=== PATIENT | female | born 1975 | race Caucasian/White ===

== ENCOUNTER 2017-12-20 19:04 | Emergency (ER) | payer MEDICAID ==
[~2017-12-20] VITALS: Ht 160 cm; Wt 100.8 kg
[~2017-12-20 19:04] MED LIST: LISI10TA11 PO; METF500T2 PO; PARO20TA13 PO
[2017-12-20 19:20] VITALS: BP 143/100
--- NOTE | 2017-12-20 19:32 | NUR ---
ACCU CHECK AND URINE SAMPLE DONE. PT TAKEN TO BED 1
--- NOTE | 2017-12-20 19:35 | NUR ---
PT TAKEN TO BED 1. WC ASSISTED
--- NOTE | 2017-12-20 19:37 | NUR ---
PATIENT IS A 42 Y/O FEMALE WHO PRESENTS TO THE ED C/O MIGRAINE. PT STATES, "I HAVEN'T GOTTEN THESE MIGRAINES IN A FEW YEARS." PT REPORTS 8/10 POKING HEADACHE PAIN THAT DOES NOT RADIATE. PT DENIES CP, SOB REPORTS NAUSEA/VOMITING DENIES DIARRHEA. PT AAOX4, RR EVEN/UNLABORED. PT REPOSITIONED FOR COMFORT, BED IN LOWEST POSITION. ER MD DR. SAPP NOTIFIED. WILL CONTINUE TO MONITOR.
[2017-12-20 22:05] VITALS: BP 139/83
--- NOTE | 2017-12-20 22:05 | NUR ---
Patient discharged with v/s stable. Written and verbal after care instructions given and explained. Patient alert, oriented and verbalized understanding of instructions. Ambulatory with steady gait. All questions addressed prior to discharge. ID band removed. Patient advised to follow up with PMD. Rx of ZOFRAN 4MG given. Patient educated on indication of medication including possible reaction and side effects. Opportunity to ask questions provided and answered.
== END 2017-12-20 22:05 | disposition home or self-care (01) ==
LOC: MED 19:04
DX: A08.4 Viral intestinal infection, unspecified (principal); E11.9 Type 2 diabetes mellitus without complications; I10 Essential (primary) hypertension
CPT/HCPCS: 82948; 99283

== ENCOUNTER 2019-12-08 23:41 | Emergency (ER) | payer MEDICAID ==
[~2019-12-08] VITALS: Ht 160 cm; Wt 89.8 kg
[~2019-12-08 23:41] MED LIST changes: -PARO20TA13 PO
[2019-12-08 23:45] VITALS: BP 132/75
--- NOTE | 2019-12-08 23:45 | NUR ---
TO ED # 08 AMBULATORY
--- NOTE | 2019-12-08 23:59 | NUR ---
44 Y/O FEMALE C/O SUDDEN ONSET ABD PAIN AND VOMITING X 5 HRS AGO. PT STATES PAIN WAS PROVOKED BY EATING. STATES 7 EPISODES OF VOMITTING. BOWEL SOUNDS PRESENT X 4 QUAD. ABD SOFT, ROUND, AND TENDER TO PALPATION. DENIES DIARRHEA. PT STATES CHILLS, AFEBRILE AT THIS TIME. PT ACCOMPANIED BY SON. PT SITTING UPRIGHT IN BED, BED LOCKED AND IN LOW POSITION. X 1 SIDE RAIL RAISED. VSS MEDHX: DM, HTN ALLERGIES: NKA
[2019-12-09] MEDS ORDERED: ONDANSETRON 4 MG TAB PO ONE
[2019-12-09] MEDS ORDERED: cefTRIAXone 1,000 MG in LIDOCAINE MPF 1% 2.1 ML IM ONE (00:20)
[2019-12-09] MEDS ORDERED: cefTRIAXone 1,000 MG VIAL ONE (00:25)
[2019-12-09] MEDS ORDERED: LIDOCAINE MPF 1% 5 ML ONE (00:26)
[2019-12-09 01:49] VITALS: BP 132/75
--- NOTE | 2019-12-09 01:49 | NUR ---
Patient discharged with v/s stable. Written and verbal after care instructions given and explained. Patient alert, oriented and verbalized understanding of instructions. Ambulatory with steady gait. All questions addressed prior to discharge. ID band removed. Patient advised to follow up with PMD. Rx of cipro, zofran was given. Patient educated on indication of medication including possible reaction and side effects. Opportunity to ask questions provided and answered.
== END 2019-12-09 01:49 | disposition home or self-care (01) ==
LOC: MED 23:41
DX: N39.0 Urinary tract infection, site not specified (principal); R11.2 Nausea with vomiting, unspecified; E11.9 Type 2 diabetes mellitus without complications; I10 Essential (primary) hypertension; Z98.890 Other specified postprocedural states; Z79.84 Long term (current) use of oral hypoglycemic drugs; Z79.899 Other long term (current) drug therapy; Z85.9 Personal history of malignant neoplasm, unspecified
CPT/HCPCS: 81002; 96372; 99283; J0696; J2001; Q0162